=== PATIENT | male | born 1985 | race American Indian/Alaskan Native ===

== ENCOUNTER 2017-02-10 20:50 | Emergency (ER) | payer SELFPAY ==
[~2017-02-10] VITALS: Ht 170.2 cm; Wt 91.4 kg
[~2017-02-10 20:50] MED LIST: ADVIL LIQUI-GE200 MG; ANTIVERT25 MG PO; BACTRIM DS 8001 TAB PO; CEPHALEXIN500 M1 PO; CIPRO 500MG TA500 MG PO; GENTAMICIN EYE D5 ML OD; KETOROLAC TROME10 MG PO; NORCO 325 MG-51 TA1 PO; NORCO 325 MG-51 TAB PO; ONDANSETRON HYDR4 M1 PO; PAXIL10 MG PO; PYRIDIUM200 M1 PO; RT ALBUTEROL I6.8 GM INH; VIBRAMYCIN100 MG PO; ZOFRAN ODT8 M1 PO
[2017-02-10 22:46] VITALS: BP 125/90
== END 2017-02-10 22:46 | disposition home or self-care (01) ==
LOC: ED 20:50
DX: L02.414 Cutaneous abscess of left upper limb (principal); F90.9 Attention-deficit hyperactivity disorder, unspecified type
CPT/HCPCS: 5930; A4550

== ENCOUNTER 2017-05-20 08:53 | Emergency (ER) | payer SELFPAY ==
[~2017-05-20] VITALS: Ht 170.2 cm; Wt 90.9 kg
[~2017-05-20 08:53] MED LIST changes: +FLOMAX0.4 MG PO; +ZOFRAN ODT4 MG PO
[2017-05-20] MEDS ORDERED: CIPRO250 M1 PO (11:57)
[2017-05-20] MEDS ORDERED: PERCOCET 325 MG1 TA2 PO (11:57)
[2017-05-20] MEDS ORDERED: KETOROLAC10 MG PO ×2 (11:59)
[2017-05-20 12:10] VITALS: BP 119/87
== END 2017-05-20 12:16 | disposition home or self-care (01) ==
LOC: ED 08:53
DX: N20.1 Calculus of ureter (principal); Z87.442 Personal history of urinary calculi
CPT/HCPCS: J1885

== ENCOUNTER 2017-11-30 07:06 | Emergency (ER) | payer OTHER ==
[~2017-11-30] VITALS: Ht 167.6 cm; Wt 95.5 kg
[~2017-11-30 07:06] MED LIST changes: +CIPRO250 M1 PO; +KETOROLAC10 MG PO; +PERCOCET 325 MG1 TA2 PO
[2017-11-30 07:55] VITALS: BP 143/98
[2017-11-30] MEDS ORDERED: ZOFRAN ODT4 MG PO (08:04)
== END 2017-11-30 08:39 | disposition home or self-care (01) ==
LOC: ED 07:06
DX: K52.9 Noninfective gastroenteritis and colitis, unspecified (principal); R51 Headache; Z91.040 Latex allergy status; Z91.018 Allergy to other foods; Z87.891 Personal history of nicotine dependence; Z87.442 Personal history of urinary calculi

== ENCOUNTER 2018-10-01 12:31 | Emergency (ER) | payer OTHER ==
[~2018-10-01] VITALS: Ht 167.6 cm; Wt 95.5 kg
[2018-10-01 13:32] LABS: HEMATOCRIT 47.2 % (42.0-52.0); HEMOGLOBIN 16.3 g/dL (13.5-18.0); MEAN CELL VOLUME 86 fl (78-100); MEAN CORPUSCULAR HEMOGLOBIN 30 pg (27-31); MEAN CORPUSCULAR HGB CONC 35 g/dL (33-37); PLATELET COUNT 129 K/mm3 (130-400); RED BLOOD COUNT 5.52 M/mm3 (4.20-5.60); RED CELL DISTRIBUTION WIDTH 12.9 % (11.5-14.5); WHITE BLOOD COUNT 3.6 K/mm3 (4.8-10.8)
[2018-10-01 13:42] LABS: MEAN PLATELET VOLUME 12.1 fl (7.4-10.4)
[2018-10-01 13:49] LABS: BAND 9 % (0-10); LYMPHOCYTE 33 % (20-51); MONOCYTE 11 % (3-10); NEUTROPHILS 44 % (42-75)
[2018-10-01 13:50] LABS: ALBUMIN 3.8 g/dL (3.5-5.0); CALCIUM 9.2 mg/dL (8.4-10.2); POTASSIUM 3.7 mmol/L (3.6-5.0); TOTAL BILIRUBIN 0.7 mg/dL (0.2-1.3); TOTAL PROTEIN 6.8 g/dL (6.3-8.2)
[2018-10-01 17:23] VITALS: BP 143/92
== END 2018-10-01 17:28 | disposition home or self-care (01) ==
LOC: ED 12:31
PROVIDERS: Nurse Practitioner
DX: J11.1 Influenza due to unidentified influenza virus with other respiratory manifestations (principal); B34.9 Viral infection, unspecified; Z87.891 Personal history of nicotine dependence
CPT/HCPCS: J7030

== ENCOUNTER 2021-09-28 19:51 | Emergency (ER) | payer SELFPAY ==
[~2021-09-28] VITALS: Ht 172.7 cm; Wt 118.2 kg
[2021-09-28] MEDS ORDERED: LYRICA75 MG PO (20:26)
[2021-09-28 21:40] LABS: BASO # 0.05 K/mm3 (0.02-0.10); EOS % 2.7 % (0.0-4.0); HEMATOCRIT 50.4 % (42.0-52.0); HEMOGLOBIN 17.4 g/dL (13.5-18.0); LYMPH# 1.72 K/mm3 (1.50-4.00); MEAN CELL VOLUME 86 fl (78-100); MEAN CORPUSCULAR HEMOGLOBIN 30 pg (27-31); MEAN CORPUSCULAR HGB CONC 35 g/dL (33-37); MEAN PLATELET VOLUME 11.5 fl (7.4-10.4); MONO # 0.77 K/mm3 (0.20-0.80); NEU # 4.73 K/mm3 (1.40-6.50); PLATELET COUNT 193 K/mm3 (130-400); RED BLOOD COUNT 5.86 M/mm3 (4.20-5.60); RED CELL DISTRIBUTION WIDTH 12.2 % (11.5-14.5); WHITE BLOOD COUNT 7.5 K/mm3 (4.8-10.8)
[2021-09-28 21:44] LABS: ALBUMIN 4.2 g/dL (3.5-5.0); POTASSIUM 4.1 mmol/L (3.5-5.1); SODIUM 139 mmol/L (136-145)
[2021-09-28 21:45] LABS: CALCIUM 11.1 mg/dL (8.3-10.5)
[2021-09-28 21:46] LABS: GLUCOSE 102 mg/dL (75-110)
[2021-09-28 21:47] LABS: TOTAL PROTEIN 7.5 g/dL (6.4-8.3)
[2021-09-28 21:48] LABS: CARBON DIOXIDE 25 mmol/L (22-29); TOTAL BILIRUBIN 0.7 mg/dL (0.2-1.2)
[2021-09-28 21:52] LABS: AST-SGOT 58 U/L (5-34)
[2021-09-28 21:53] LABS: ALT/SGPT 104 U/L (0-55)
[2021-09-28 21:59] LABS: TROPONIN-I < 0.030 ng/mL (<0.030)
[2021-09-28] MEDS ORDERED: GOOD NEIGHBOR M25 M1 PO (22:59)
[2021-09-28 23:36] VITALS: BP 145/96
== END 2021-09-28 23:36 | disposition home or self-care (01) ==
LOC: ED 19:51
PROVIDERS: Physician Assistant
DX: F41.9 Anxiety disorder, unspecified (principal); F32.A Depression, unspecified; R94.5 Abnormal results of liver function studies; T42.6X5A Adverse effect of other antiepileptic and sedative-hypnotic drugs, initial encounter; Z91.040 Latex allergy status
CPT/HCPCS: J1885; J7030

== ENCOUNTER → 2023-06-15 | Outpatient (CLI) | payer SELFPAY ==
[~2023-06-15] MED LIST changes: +GOOD NEIGHBOR M25 M1 PO; +LYRICA75 MG PO; +SEPTRA DS 8001 TAB PO
== END ==
LOC: RAD 09:57
DX: K76.89 Other specified diseases of liver (principal)

== ENCOUNTER 2023-11-17 12:49 | Emergency (ER) | payer SELFPAY ==
[~2023-11-17] VITALS: Ht 167.6 cm; Wt 109.1 kg
[2023-11-17] MEDS ORDERED: ESCITALOPRAM20 MG PO (13:21)
[2023-11-17] MEDS ORDERED: LISINOPRIL AND1 TA1 PO (13:21)
[2023-11-17] MEDS ORDERED: SIMVASTATIN20 M1 PO (13:21)
[2023-11-17 14:06] LABS: BASO # 0.02 K/mm3 (0.02-0.10); EOS # 0.35 K/mm3 (0.04-0.40); EOS % 5.5 % (0.0-4.0); HEMATOCRIT 50.6 % (42.0-52.0); LYMPH# 2.38 K/mm3 (1.50-4.00); MEAN CELL VOLUME 88 fl (78-100); MEAN CORPUSCULAR HEMOGLOBIN 29 pg (27-31); MEAN CORPUSCULAR HGB CONC 34 g/dL (33-37); MEAN PLATELET VOLUME 11.9 fl (7.4-10.4); MONO # 0.48 K/mm3 (0.20-0.80); NEU # 3.15 K/mm3 (1.40-6.50); PLATELET COUNT 199 K/mm3 (130-400); RED BLOOD COUNT 5.78 M/mm3 (4.20-5.60); RED CELL DISTRIBUTION WIDTH 12.3 % (11.5-14.5); WHITE BLOOD COUNT 6.4 K/mm3 (4.8-10.8)
[2023-11-17 14:12] LABS: ALBUMIN 4.5 g/dL (3.5-5.0)
[2023-11-17 14:13] LABS: SODIUM 139 mmol/L (136-145)
[2023-11-17 14:15] LABS: GLUCOSE 104 mg/dL (75-110); TOTAL PROTEIN 7.5 g/dL (6.4-8.3)
[2023-11-17 14:16] LABS: CARBON DIOXIDE 24 mmol/L (22-29)
[2023-11-17 14:17] LABS: TOTAL BILIRUBIN 0.9 mg/dL (0.2-1.2)
[2023-11-17 14:20] LABS: AST-SGOT 41 U/L (5-34)
[2023-11-17 14:21] LABS: ALCOHOL IN-HOUSE < 10 mg/dL (<10)
[2023-11-17 14:22] LABS: ALT/SGPT 87 U/L (0-55)
[2023-11-17 14:23] LABS: ACETAMINOPHEN < 1 ug/mL
[2023-11-17 14:33] LABS: URINE APPEARANCE CLEAR (CLEAR); URINE COLOR YELLOW (YELLOW)
[2023-11-17 14:34] LABS: URINE BILIRUBIN NEGATIVE (NEGATIVE); URINE BLOOD NEGATIVE (NEGATIVE); URINE GLUCOSE NEGATIVE (NEGATIVE); URINE KETONE NEGATIVE (NEGATIVE); URINE LEUKOCYTE ESTERASE NEGATIVE (NEGATIVE); URINE MUCUS PRESENT (NOT PRESENT); URINE NITRATE NEGATIVE (NEGATIVE); URINE PROTEIN(semi-quant) NEGATIVE (NEGATIVE)
[2023-11-17 17:45] VITALS: BP 127/89
== END 2023-11-17 17:45 ==
LOC: ED 12:49
PROVIDERS: Family Medicine
DX: F32.A Depression, unspecified (principal); R45.851 Suicidal ideations; F17.290 Nicotine dependence, other tobacco product, uncomplicated; Z91.040 Latex allergy status